=== PATIENT | female | born 1970 | race Caucasian/White ===

== ENCOUNTER 2021-06-10 20:20 | Emergency (ER) | payer MEDICARE, BC ==
[2021-06-10] MEDS ORDERED: Sodium Chloride 0.9% 10 ML Syringe FLUSH PRN (20:29)
[2021-06-10] MEDS ORDERED: Calcium Gluconate 1 GM in Sodium Chloride 0.9% 100 ML IV ONE ×3 (20:40→23:00)
--- NOTE | 2021-06-10 20:52 | EDM.PDOC ---
ED HPI GENERAL MEDICAL PROBLEM - General Chief Complaint: General Stated Complaint: hypocalcemia symptoms Time Seen by Provider: 06/10/21 20:35 Source of Information: Reports: Patient, Old Records History Limitations: Reports: No Limitations - History of Present Illness INITIAL COMMENTS - FREE TEXT/NARRATIVE: Patient present with facial numbness, hand and cheek spasms with concern for hypocalcemia. Patient is status post thyroidectomy and removal of two parathyroid glands. She has suffered for years with hypocalcemia, sees endocrine in [place] and has been having symptoms for a few days. They are progressively getting worse and she is concerned that she will not be able to make it through the weekend without treatment. Last treatment of IV calcium gluconate was in February of this year. She received iv potassium and 4 grams of calcium gluconate and was able to go home. She is taking oral supplementation of calcium and struggles to have a calcium level of greater than 7.9. Has not had to receive magnesium. Last TSh check was in February and had been slightly elevated due to a change in her Synthroid. She is no longer getting IV parathyroid infusions due to a recall of the medication. She has had multiple central lines, picc lines and ports for frequent infusions, but they have all become infected and does not have access at this time. She has been referred to [facility] for endocrine consultation July 04. Onset: Gradual Duration: Day(s):, Getting Worse Location: Reports: Face, Upper Extremity, Left, Upper Extremity, Right, Lower Extremity, Left, Lower Extremity, Right Quality: Reports: Other (cramping) Severity: Moderate Improves with: Reports: None Worsens with: Reports: Movement Associated Symptoms: Reports: No Other Symptoms - Related Data Allergies Allergy/AdvReac Type Severity Reaction Status Date / Time ampicillin Allergy Rash Verified 06/10/21 20:21 hydrocodone Allergy Airway Verified 06/10/21 20:21 Tightness, itching Home Meds: Home Meds Calcitriol 2 cap PO TID 06/23/17 [History] Calcium Carbonate [Tums] 1,500 mg PO QID 06/23/17 [History] Ergocalciferol (Vitamin D2) [Vitamin D2] 50,000 units PO MOWEFR@0800 06/23/17 [History] Ibuprofen 600 mg PO Q6HR PRN 06/23/17 [History] Meclizine [Antivert] 25 mg PO Q4HR PRN 06/23/17 [History] Naproxen Sodium [Aleve] 440 mg PO BID PRN 06/23/17 [History] Cholecalciferol (Vitamin D3) [Vitamin D3] 5,000 unit PO DAILY 06/10/21 [History] Levothyroxine Sodium [Synthroid] 175 mcg PO ACBREAKFAST 06/10/21 [History] Potassium Chloride [Klor-Con M20] 40 meq PO DAILY 06/10/21 [History] Past Medical History HEENT History: Reports: None Cardiovascular History: Reports: None Respiratory History: Reports: None Gastrointestinal History: Reports: None Genitourinary History: Reports: None INPATIENT PHARMACIST History: Reports: None Musculoskeletal History: Reports: None Neurological History: Reports: None Psychiatric History: Reports: Anxiety Endocrine/Metabolic History: Reports: Hypoparathyroidism (hypocalcemia), Hypothyroidism, Vitamin D Deficiency Other Endocrine/Metabolic History: does own IV infusions of calcium glucanate, potassium and magneisum Hematologic History: Reports: B12 Deficiency Dermatologic History: Reports: None Social & Family History - Tobacco Use Tobacco Use Status *Q: Never Tobacco User - Recreational Drug Use Recreational Drug Use: No Drug Use in Last 12 Months: No - Living Situation & Occupation Living situation: Reports: ED ROS GENERAL - Review of Systems Review Of Systems: See Below Constitutional: Reports: Weakness, Fatigue HEENT: Reports: Other (facial numbness and spasms of the cheeks). Denies: Hearing Loss Respiratory: Reports: No Symptoms. Denies: Shortness of Breath, Wheezing, Cough Cardiovascular: Reports: No Symptoms. Denies: Chest Pain, Blood Pressure Problem, Dyspnea on Exertion, Edema, Lightheadedness Endocrine: Reports: No Symptoms GI/Abdominal: Reports: No Symptoms. Denies: Abdominal Pain, Anorexia, Diarrhea, Flatus, Nausea, Vomiting : Reports: No Symptoms. Denies: Discharge, Dysuria, Frequency Musculoskeletal: Reports: Other (muscle cramps, spasms ) Skin: Reports: No Symptoms Neurological: Reports: Numbness (facial for days, wosening) Psychiatric: Reports: No Symptoms Hematologic/Lymphatic: Reports: No Symptoms Immunologic: Reports: No Symptoms ED EXAM, GENERAL - Physical Exam Exam: See Below Exam Limited By: No Limitations General Appearance: Alert, WD/WN, No Apparent Distress Eye Exam: Bilateral Eye: EOMI, Normal Inspection, PERRL Throat/Mouth: Normal Inspection, Normal Lips, Normal Teeth, Normal Gums (chvostek sign positive) Head: Atraumatic Neck: Normal Inspection, Supple, Non-Tender Respiratory/Chest: No Respiratory Distress, Lungs Clear, Normal Breath Sounds, No Accessory Muscle Use, Chest Non-Tender Cardiovascular: Normal Peripheral Pulses, Regular Rate, Rhythm, No Edema Extremities: Normal Inspection, Pedal Edema (1+ minimal in the mid jacobo area, mild in the hands bilaterally. ), Other (trousseau' s sign noted with blood pressure taken) Neurological: Alert, Oriented, CN II-XII Intact, Normal Cognition, Normal Gait, No Motor/Sensory Deficits Psychiatric: Normal Affect, Normal Mood #1 Interpretation EKG Date: 06/10/21 Time: 20:44 Rhythm: NSR Rate (Beats/Min): 80 Baker: Normal P-Wave: Present QRS: Normal ST-T: Normal QT: Normal Comparison: No Change (reviewed EKG from 02/2021) Course - Vital Signs Last Recorded V/S: Last Vital Signs Temp 36.3 C 06/10/21 20:20 Pulse 91 06/10/21 20:20 Resp 17 06/10/21 20:20 BP 131/82 06/10/21 20:20 Pulse Ox 100 06/10/21 20:20 - Orders/Labs/Meds Orders: Active Orders 24 hr Category Date Time Status EKG Documentation Completion [RC] ASDIRECTED Care 06/10/21 20:30 Active Peripheral IV Care [RC] . DIRECTED Care 06/10/21 20:29 Active Calcium Gluconate 1 gm Med 06/10/21 22:00 Ordered Sodium Chloride 0.9% [Normal Saline] 100 ml IV ONETIME Calcium Gluconate 1 gm Med 06/10/21 23:00 Ordered Sodium Chloride 0.9% [Normal Saline] 100 ml IV ONETIME Magnesium Sulfate/Water [Magnesium Sulfate in Water 2 Med 06/10/21 21:38 Ordered GM/50 ML] 2 gm Premix Bag 1 bag IV ONETIME Potassium Chloride Riders [KCl in Water 10 MEQ/50 ML] Med 06/10/21 21:38 Ordered 10 meq Premix Bag 1 bag IV ONETIME Sodium Chloride 0.9% [Saline Flush] Med 06/10/21 20:29 Active 10 ml FLUSH ASDIRECTED PRN Peripheral IV Insertion Adult [OM.PC] Routine Oth 06/10/21 20:29 Ordered EKG 12 Lead [EK] Stat Ther 06/10/21 20:29 Ordered Medication Orders Calcium Gluconate 1 gm/ Sodium (Chloride) 110 mls @ 100 mls/hr IV ONETIME ONE Stop: 06/10/21 23:05 Magnesium Sulfate 2 gm/ Premix 50 mls @ 25 mls/hr IV ONETIME ONE Stop: 06/10/21 23:37 Potassium Chloride 10 meq/ (Premix) 50 mls @ 50 mls/hr IV ONETIME ONE Stop: 06/10/21 22:37 Calcium Gluconate 1 gm/ Sodium (Chloride) 110 mls @ 100 mls/hr IV ONETIME ONE Stop: 06/11/21 00:05 Sodium Chloride (Sodium Chloride 0.9% 10 Ml Syringe) 10 ml FLUSH ASDIRECTED PRN PRN Reason: Keep Vein Open Labs: Laboratory Tests 06/10/21 06/10/21 06/10/21 Range/Units 20:55 20:55 20:55 WBC 9.5 (4.0-10.2) K/uL RBC 4.26 (3.77-5.09) M/uL Hgb 14.0 (11.7-15.5) g/dL Hct 41.4 (34.0-46.0) % MCV 97.2 (84.0-98.0) fL MCH 32.9 (28.2-33.3) pg MCHC 33.8 (31.7-36.0) g/dL RDW 14.0 (11.2-14.1) % Plt Count 282 (150-350) K/uL Neut % (Auto) 60.7 (45.0-80.0) % Lymph % (Auto) 29.7 (10.0-50.0) % [place] % (Auto) 6.2 (2.0-14.0) % Eos % (Auto) 3.1 (0.0-5.0) % Baso % (Auto) 0.3 (0.0-2.0) % Neut # (Auto) 5.76 (1.40-7.00) K/uL Lymph # (Auto) 2.82 (0.50-3.50) K/uL [place] # (Auto) 0.59 (0.00-1.00) K/uL Eos # (Auto) 0.29 (0.00-0.50) K/uL Baso # (Auto) 0.03 (0.00-0.20) K/uL Sodium 145 (136-145) mmol/L Potassium 3.1 L (3.5-5.1) mmol/L Chloride 106 (98-107) mmol/L Carbon Dioxide 26.1 (21.0-32.0) mmol/L Anion Gap 16.0 H (7-15) meq/L BUN 16 (7-18) mg/dL Creatinine 0.79 (0.51-1.17) mg/dL Est Cr Clr Drug Dosing 78.21 mL/min Estimated GFR (MDRD) > 60 mL/min Glucose 116 H (70-99) mg/dL Calcium 6.9 L (8.5-10.1) mg/dL Magnesium 1.6 L (1.8-2.4) mg/dL Total Bilirubin 0.1 L (0.2-1.0) mg/dL AST 17 (15-37) U/L ALT 29 (12-78) U/L Alkaline Phosphatase 72 (46-116) IU/L Total Protein 6.6 (6.4-8.2) g/dL Albumin 3.3 L (3.4-5.0) g/dL TSH, Ultra Sensitive 0.474 (0.358-3.740) mIU/mL Meds: Medications Generic Name Dose Route Start Last Admin Trade Name Freq PRN Reason Stop Dose Admin Calcium Gluconate 1 gm/ Sodium 110 mls @ 100 mls/hr 06/10/21 22:00 Chloride IV 06/10/21 23:05 ONETIME ONE Magnesium Sulfate 2 gm/ Premix 50 mls @ 25 mls/hr 06/10/21 21:38 IV 06/10/21 23:37 ONETIME ONE Potassium Chloride 10 meq/ 50 mls @ 50 mls/hr 06/10/21 21:38 Premix IV 06/10/21 22:37 ONETIME ONE Calcium Gluconate 1 gm/ Sodium 110 mls @ 100 mls/hr 06/10/21 23:00 Chloride IV 06/11/21 00:05 ONETIME ONE Sodium Chloride 10 ml 06/10/21 20:29 Sodium Chloride 0.9% 10 Ml Syringe FLUSH ASDIRECTED PRN Keep Vein Open Discontinued Medications Generic Name Dose Route Start Last Admin Trade Name Juni PRN Reason Stop Dose Admin Calcium Gluconate 1 gm/ Sodium 110 mls @ 100 mls/hr 06/10/21 20:40 06/10/21 20:59 Chloride IV 06/10/21 21:45 100 mls/hr ONETIME ONE Administration Potassium Chloride 60 meq 06/10/21 21:42 Potassium Chloride 20 Meq Tab.Er PO 06/10/21 21:43 ONETIME ONE - Re-Assessments/Exams Free Text/Narrative Re-Assessment/Exam: 06/10/21 21:03 Patient with long standing history of hypocalcemia after thyroidectomy and 2 parathyroidectomy with symptoms of hypocalcemia. Will give 1 gram calcium gluconate initially while awaiting labs to include tsh, electrolytes and magnesium. No changes in EKG. Will infuse the gram over an hour. Has not been ill otherwise. normal eating and drinking and has been taking her supplemental calcium. perfers to not go to [place] if not needed, and would like to go home after treatment. 06/10/21 21:57 potassium is low, takes 40 meq daily, will give 10 meq IV and 60 meq po. Magnesium is low at 1.6, to help with the calcium absorption will give 2 grams iv over two hours . Calcium is 6.9, normal for her is 7.8-7.9. will give 3 grams over 3 hours. No ekg changes. Will advise to get local medical contact to set up communication with endocrine in [place] for possible infusions as needed instead of trip to [place] ER with long wait times and increased exposure to Covid. offered admission here if wanted, would like to try at home, not a new problem for her. Discussed checking her symptoms in the morning, if not improved, [place] ED visit or return for admission and regular infusions for a day or so. Patient voices understanding and agrees. Will call endocrine in [place] in three days ( Sunday) and get order for recheck of labs, as a script by myself would be complicated to follow up on values short of hand off to next ED provid er. Patient understands and would return as needed. Departure - Departure Time of Disposition: 23:55 Disposition: Home, Self-Care 01 Condition: Good Clinical Impression: Hypokalemia, Hypocalcemia, Hypomagnesemia - Discharge Information Instructions: Hypomagnesemia, Hypokalemia, Hypocalcemia, Adult, Potassium Content of Foods, Calcium Content in Foods Referrals: Yousif Carrillo MD [Primary Care Provider] - Forms: ED Department Discharge Additional Instructions: Your potassium was low today at 3.1. Take your your potassium supplement of 40 meq once daily and increase the potassium rich foods or take the tablet twice a day until your levels are rechecked. You were given 10 meq IV and 60 meq orally. Your magnesium was low today at 1.6. A Supplement of 400 mg a day may help or magnesium rich foods. You were given 2 grams IV to help with the absorption of the potassium and the calcium. Your calcium was low today at 6.9. You were given 3 grams IV over 3 hours. Continue your oral supplements and your appointment with [facility] Call your mri supervisor on Sunday for labs to recheck these levels. Establish a local provider to act as a liaison between [place] and [facility] for labs and IV infusions as needed to limit trips to [place] ER and increased exposure to Covid 19. If your symptoms are not improved tomorrow, return to the ED for possible admission for routine IV treatments of IV calcium or to [place]. Sepsis Event Note (ED) - Evaluation Sepsis Screening Result: No Definite Risk - Focused Exam Vital Signs: Vital Signs Temp Pulse Resp BP Pulse Ox 06/10/21 20:20 36.3 C 91 17 131/82 100 - My Orders Last 24 Hours: My Active Orders 06/10/21 20:29 Peripheral IV Care [RC] . DIRECTED Sodium Chloride 0.9% [Saline Flush] 10 ml FLUSH ASDIRECTED PRN Peripheral IV Insertion Adult [OM.PC] Routine EKG 12 Lead [EK] Stat 06/10/21 20:30 EKG Documentation Completion [RC] ASDIRECTED 06/10/21 21:38 Magnesium Sulfate/Water [Magnesium Sulfate in Water 2 GM/50 ML] 2 gm Premix Bag 1 bag IV ONETIME Potassium Chloride Riders [KCl in Water 10 MEQ/50 ML] 10 meq Premix Bag 1 bag IV ONETIME 06/10/21 22:00 Calcium Gluconate 1 gm Sodium Chloride 0.9% [Normal Saline] 100 ml IV ONETIME 06/10/21 23:00 Calcium Gluconate 1 gm Sodium Chloride 0.9% [Normal Saline] 100 ml IV ONETIME - Assessment/Plan Last 24 Hours: My Active Orders 06/10/21 20:29 Peripheral IV Care [RC] . DIRECTED Sodium Chloride 0.9% [Saline Flush] 10 ml FLUSH ASDIRECTED PRN Peripheral IV Insertion Adult [OM.PC] Routine EKG 12 Lead [EK] Stat 06/10/21 20:30 EKG Documentation Completion [RC] ASDIRECTED 06/10/21 21:38 Magnesium Sulfate/Water [Magnesium Sulfate in Water 2 GM/50 ML] 2 gm Premix Bag 1 bag IV ONETIME Potassium Chloride Riders [KCl in Water 10 MEQ/50 ML] 10 meq Premix Bag 1 bag IV ONETIME 06/10/21 22:00 Calcium Gluconate 1 gm Sodium Chloride 0.9% [Normal Saline] 100 ml IV ONETIME 06/10/21 23:00 Calcium Gluconate 1 gm Sodium Chloride 0.9% [Normal Saline] 100 ml IV ONETIME
[2021-06-10 21:21] LABS: CHLORIDE,CL 106 mmol/L (98-107); SODIUM,NA 145 mmol/L (136-145)
[2021-06-10] MEDS ORDERED: Magnesium Sulfate/Water 2 GM in Premix Bag 1 BAG IV ONE (21:38)
[2021-06-10] MEDS ORDERED: Potassium Chloride Riders 10 MEQ in Premix Bag 1 BAG IV ONE (21:38)
[2021-06-10] MEDS ORDERED: Potassium Chloride 20 MEQ Tab.ER PO ONE (21:42)
[2021-06-10] MEDS: Sodium Chloride 0.9% 100 ML IV SCH ×2 (22:05→22:10)
[2021-06-10 23:45] VITALS: BP 117/71; PULSE 73
== END 2021-06-11 00:35 | disposition home or self-care (01) ==
LOC: LL.ED 20:20
DX: E87.6 Hypokalemia (principal); E83.51 Hypocalcemia; E83.42 Hypomagnesemia; E03.9 Hypothyroidism, unspecified; Z88.0 Allergy status to penicillin; Z88.5 Allergy status to narcotic agent; Z79.899 Other long term (current) drug therapy
CPT/HCPCS: 36415; 80053; 83735; 84443; 85025; 93005; 93010; 96365; 96366; 96367; 96368; 96375; 99284; 99284-25; A9270-GY; J0610; J3475; J3480

== ENCOUNTER 2021-08-26 19:10 | Emergency (ER) | payer BC, MEDICARE ==
[2021-08-26] MEDS ORDERED: Magnesium Sulfate/Water 2 GM in Premix Bag 1 BAG IV ONE (19:21)
[2021-08-26] MEDS ORDERED: Sodium Chloride 0.9% 10 ML Syringe FLUSH PRN (19:21)
[2021-08-26] MEDS ORDERED: Calcium Gluconate 10% 1 GM/10 ML SDV IVPUSH ONE (19:21)
--- NOTE | 2021-08-26 19:47 | EDM.PDOC ---
ED HPI GENERAL MEDICAL PROBLEM - General Chief Complaint: General Stated Complaint: hypocalcemia w/ tetany Time Seen by Provider: 08/26/21 19:20 Source of Information: Reports: Patient History Limitations: Reports: No Limitations - History of Present Illness INITIAL COMMENTS - FREE TEXT/NARRATIVE: Patient presents to the Ed with increasing symptoms of low calcium. Patient has a complex history of thyroidectomy and two parathyroidectomy with sequalae of electrolyte imbalance. I am familiar with the patient and she recent did see her chief librarian extension department at [facility] and is awaiting approval for a clinical trial medication. Patient has been having symptoms for three weeks. Did wait for her PCP appointment on 08/19. labs were drawn. She was called with the results and was awaiting a call back for an infusion but has not heard anything. Patient has been having increasing muscle aches, fatigue and numbness. She was told to repeat labs from last week today even though she hadn't had any changes in meds or infusion so she did. Tonight she presented because she felt she could not wait until next week. Onset: Gradual Duration: Getting Worse Bilateral Leg Pain Score (Numeric/FACES): 4 - Related Data Allergies Allergy/AdvReac Type Severity Reaction Status Date / Time ampicillin Allergy Rash Verified 08/26/21 19:22 hydrocodone Allergy Airway Verified 08/26/21 19:22 Tightness, itching Home Meds: Home Meds Calcitriol 2 cap PO TID 06/23/17 [History] Calcium Carbonate [Tums] 1,500 mg PO QID 06/23/17 [History] Ergocalciferol (Vitamin D2) [Vitamin D2] 50,000 units PO MOWEFR@0800 06/23/17 [History] Ibuprofen 600 mg PO Q6HR PRN 06/23/17 [History] Meclizine [Antivert] 25 mg PO Q4HR PRN 06/23/17 [History] Naproxen Sodium [Aleve] 440 mg PO BID PRN 06/23/17 [History] Cholecalciferol (Vitamin D3) [Vitamin D3] 5,000 unit PO DAILY 06/10/21 [History] Levothyroxine Sodium [Synthroid] 175 mcg PO ACBREAKFAST 06/10/21 [History] Potassium Chloride [Klor-Con M20] 40 meq PO DAILY 06/10/21 [History] Magnesium Chloride [Mag Delay] 64 mg PO DAILY 08/26/21 [History] Past Medical History HEENT History: Reports: None Cardiovascular History: Reports: None Respiratory History: Reports: None Gastrointestinal History: Reports: None Genitourinary History: Reports: None HOME CARE NURSE History: Reports: Musculoskeletal History: Reports: None Neurological History: Reports: None Psychiatric History: Reports: Anxiety Endocrine/Metabolic History: Reports: Hypoparathyroidism, Hypothyroidism, Vitamin D Deficiency Other Endocrine/Metabolic History: does own IV infusions of calcium glucanate, potassium and magneisum Hematologic History: Reports: B12 Deficiency Oncologic (Cancer) History: Reports: Leukemia Dermatologic History: Reports: None - Infectious Disease History Infectious Disease History: Reports: Other (See Below) Other Infectious Disease History: history recurrent CLABSI - Past Surgical History Female Surgical History: Reports: Hysterectomy Musculoskeletal Surgical History: Reports: Other (See Below) Other Musculoskeletal Surgeries/Procedures:: cervical spine fusion Social & Family History - Tobacco Use Tobacco Use Status *Q: Unknown Ever Used Tobacco - Recreational Drug Use Recreational Drug Use: No Drug Use in Last 12 Months: No - Living Situation & Occupation Living situation: Reports: ED ROS GENERAL - Review of Systems Review Of Systems: See Below Constitutional: Reports: Malaise, Weakness, Fatigue HEENT: Reports: No Symptoms Respiratory: Reports: No Symptoms Cardiovascular: Reports: No Symptoms Endocrine: Reports: No Symptoms GI/Abdominal: Reports: No Symptoms : Reports: No Symptoms Musculoskeletal: Reports: Other (muscle spasms and achiness) Neurological: Reports: Numbness Psychiatric: Reports: No Symptoms Hematologic/Lymphatic: Reports: No Symptoms Immunologic: Reports: No Symptoms ED EXAM, GENERAL - Physical Exam Exam: See Below Exam Limited By: No Limitations General Appearance: Alert, WD/WN, No Apparent Distress Eye Exam: Bilateral Eye: EOMI, Normal Inspection Ears: Normal External Exam Nose: Normal Inspection Throat/Mouth: Normal Inspection, Normal Lips, Normal Voice Head: Atraumatic Neck: Normal Inspection, Supple, Non-Tender Respiratory/Chest: No Respiratory Distress, Lungs Clear, Normal Breath Sounds, No Accessory Muscle Use Cardiovascular: Normal Peripheral Pulses, Regular Rate, Rhythm, No Murmur GI/Abdominal: Normal Bowel Sounds Extremities: Normal Inspection, No Pedal Edema Neurological: Alert, Oriented, CN II-XII Intact, Normal Cognition, No Motor/Sensory Deficits Psychiatric: Normal Affect Course - Vital Signs Last Recorded V/S: Last Vital Signs Temp 36.6 C 08/27/21 00:11 Pulse 73 08/27/21 00:11 Resp 14 08/27/21 00:11 BP 102/50 L 08/27/21 00:11 Pulse Ox 97 08/27/21 00:11 - Orders/Labs/Meds Orders: Active Orders 24 hr Category Date Time Status Peripheral IV Insertion Adult [OM.PC] Routine Oth 08/26/21 19:21 Ordered EKG 12 Lead [EK] Stat Ther 08/26/21 19:21 Ordered Meds: Medications Discontinued Medications Generic Name Dose Route Start Last Admin Trade Name Freq PRN Reason Stop Dose Admin Calcium Gluconate 3 gm 08/26/21 19:21 08/26/21 23:29 Calcium Gluconate 10% 1 Gm/10 Ml Sdv IVPUSH 08/26/21 19:22 3 gm ONETIME ONE Administration Magnesium Sulfate 2 gm/ Premix 50 mls @ 25 mls/hr 08/26/21 19:21 08/26/21 20:08 IV 08/26/21 21:20 25 mls/hr ONETIME ONE Administration Potassium Chloride 10 meq/ 50 mls @ 50 mls/hr 08/26/21 19:30 08/26/21 22:58 Premix IV 08/27/21 20:29 50 mls/hr ONETIME RON Administration Sodium Chloride 10 ml 08/26/21 19:21 Sodium Chloride 0.9% 10 Ml Syringe FLUSH ASDIRECTED PRN Keep Vein Open - Re-Assessments/Exams Free Text/Narrative Re-Assessment/Exam: 08/26/21 19:48 Patient needs IV infusions of calcium gluconate 2 grams, potassium chloride 20 meq and magnesium 2 grams. Continue follow up with [facility] for experimental approval of medication. See PCP next week to check lab levels. return for more symptoms without delay. Discussed that waiting while symptomatic can cause conduction problems with her heart and is not advised. Attempted to get EKG, machine is malfunctioning. Bedside monitoring does not reveal arrhythmia, wide qrs or concerning problems. 08/26/21 20:13 Discussed with patient follow up in 3 days for electrolyte recheck. It has been 2 1/2 months since she had her last infusion and at least 3 weeks since she became symptomatic. It may be beneficial to track her dropping of electrolyte level every couple of weeks so that she can get an infusion prior to getting so low in regards to her overall health. Also ask her PCP to set up a standing order for the infusions so that when labs are abnormal, she can set up an outpatient infusion with nursing and avoid an ER visit. She will ask her provider this. Departure - Departure Time of Disposition: 23:55 Disposition: Home, Self-Care 01 Condition: Good Clinical Impression: Hypocalcemia, Hypomagnesemia, Hypokalemia - Discharge Information Referrals: Saba Jensen MD [Primary Care Provider] - Forms: ED Department Discharge Additional Instructions: set up an appointment with your pcp on August 29 for recheck of your electrolytes. Discuss with her the possibility of tracking the drop of them over time so you have an idea of how to correlate your symptoms with your levels and need for infusion. Also discuss with your physician the possibility of setting up a standing order for your infusions so that when needed you can come to outpatient at a time that is convenient for you and nursing staff and bypass an ER visit and charge. Sepsis Event Note (ED) - Evaluation Sepsis Screening Result: No Definite Risk - Focused Exam Vital Signs: Vital Signs Temp Pulse Resp BP Pulse Ox 08/27/21 00:11 36.6 C 73 14 102/50 L 97 - My Orders Last 24 Hours: My Active Orders 08/26/21 19:21 Peripheral IV Insertion Adult [OM.PC] Routine EKG 12 Lead [EK] Stat - Assessment/Plan Last 24 Hours: My Active Orders 08/26/21 19:21 Peripheral IV Insertion Adult [OM.PC] Routine EKG 12 Lead [EK] Stat
[2021-08-26] MEDS: Potassium Chloride Riders 10 MEQ in Premix Bag 1 BAG IV SCH ×2 (21:36→22:58)
[2021-08-27 00:12] VITALS: BP 102/50; PULSE 73
== END 2021-08-27 00:20 | disposition home or self-care (01) ==
LOC: LL.ED 19:10
DX: E83.51 Hypocalcemia (principal); E83.42 Hypomagnesemia; E87.6 Hypokalemia; E03.9 Hypothyroidism, unspecified; Z88.1 Allergy status to other antibiotic agents; Z88.5 Allergy status to narcotic agent; Z79.899 Other long term (current) drug therapy
CPT/HCPCS: 96365; 96366; 96367; 99284; J0610; J3475; J3480

== ENCOUNTER 2023-07-30 20:18 | Emergency (ER) | payer BC ==
[2023-07-30 20:22] VITALS: BP 133/81; PULSE 109
[2023-07-30] MEDS ORDERED: Acetaminophen 325 MG Tab PO ONE (20:30)
[2023-07-30 21:12] LABS: CORONAVIRUS COVID-19 NAA NEGATIVE (NEGATIVE); INFLUENZA A NAA NEGATIVE (NEGATIVE); INFLUENZA B NAA NEGATIVE (NEGATIVE); RESPIRATORY SYNCYTIAL VIR NAA NEGATIVE (NEGATIVE)
[2023-07-30 22:28] LABS: BASOPHILS ABSOLUTE AUTO 0.03 K/uL (0.00-0.20); BASOPHILS PERCENT AUTO 0.1 % (0.0-2.0); EOSINOPHILS ABSOLUTE AUTO 0.05 K/uL (0.00-0.50); EOSINOPHILS PERCENT AUTO 0.2 % (0.0-5.0); HEMOGLOBIN 15.1 g/dL (11.7-15.5); LYMPHOCYTES ABSOLUTE AUTO 1.68 K/uL (0.50-3.50); LYMPHOCYTES PERCENT AUTO 8.3 % (10.0-50.0); MEAN CORPUSCULAR HEMOGLOBIN 32.6 pg (28.2-33.3); MEAN CORPUSCULAR HGB CONC 34.3 g/dL (31.7-36.0); MONOCYTES ABSOLUTE AUTO 1.14 K/uL (0.00-1.00); MONOCYTES PERCENT AUTO 5.6 % (2.0-14.0); NEUTROPHILS ABSOLUTE AUTO 17.35 K/uL (1.40-7.00); NEUTROPHILS PERCENT AUTO 85.8 % (45.0-80.0); PLATELET COUNT,PLT 267 K/uL (150-350); RED BLOOD CELL COUNT 4.63 M/uL (3.77-5.09); RED CELL DISTRIBUTION WIDTH 13.6 % (11.2-14.1); WHITE BLOOD CELL COUNT,WBC 20.3 K/uL (4.0-10.2)
[2023-07-30 22:46] LABS: ALANINE AMINOTRANSFERASE,ALT 52 U/L (12-78); ALBUMIN 3.6 g/dL (3.4-5.0); ALKALINE PHOSPHATASE 121 IU/L (46-116); ANION GAP 18.9 meq/L (7-15); ASPARTATE AMNIOTRANSFERASE,AST 24 U/L (15-37); BILIRUBIN TOTAL 0.6 mg/dL (0.2-1.0); BLOOD UREA NITROGEN,BUN 14 mg/dL (7-18); CALCIUM 7.8 mg/dL (8.5-10.1); CARBON DIOXIDE,CO2 22.2 mmol/L (21.0-32.0); CHLORIDE,CL 101 mmol/L (98-107); ESTIMATED GFR 89 mL/min (>=60); GLUCOSE RANDOM 106 mg/dL (70-99); MAGNESIUM 1.5 mg/dL (1.8-2.4); POTASSIUM,K 3.1 mmol/L (3.5-5.1); PROTEIN TOTAL,TP 7.3 g/dL (6.4-8.2); SODIUM,NA 139 mmol/L (136-145)
[2023-07-30] MEDS ORDERED: Potassium Chloride 20 MEQ Tab.ER PO ONE (23:05)
[2023-07-30] MEDS ORDERED: Benzonatate 100 MG Cap PO ONE (23:06)
[2023-07-30] MEDS ORDERED: predniSONE 20 MG Tab PO ONE (23:13)
== END 2023-07-30 23:20 | disposition home or self-care (01) ==
LOC: LL.ED 20:18
DX: B34.9 Viral infection, unspecified (principal); E87.6 Hypokalemia; E83.42 Hypomagnesemia; E83.51 Hypocalcemia; Z20.822 Contact with and (suspected) exposure to COVID-19; E03.9 Hypothyroidism, unspecified; Z90.710 Acquired absence of both cervix and uterus; Z79.899 Other long term (current) drug therapy; Z88.5 Allergy status to narcotic agent; Z88.0 Allergy status to penicillin
CPT/HCPCS: 0241U; 36415; 71046; 80053; 83605; 83735; 85025; 99283; 99284; A9270-GY; J7512

== ENCOUNTER 2024-10-08 16:55 | Emergency (ER) | payer BC, OTHER ==
[2024-10-08 17:26] LABS: BASOPHILS ABSOLUTE AUTO 0.03 K/uL (0.00-0.20); BASOPHILS PERCENT AUTO 0.5 % (0.0-2.0); EOSINOPHILS ABSOLUTE AUTO 0.07 K/uL (0.00-0.50); EOSINOPHILS PERCENT AUTO 1.2 % (0.0-5.0); HEMATOCRIT 43.6 % (34.0-46.0); HEMOGLOBIN 14.6 g/dL (11.7-15.5); LYMPHOCYTES ABSOLUTE AUTO 4.21 K/uL (0.50-3.50); LYMPHOCYTES PERCENT AUTO 69.5 % (10.0-50.0); MEAN CORPUSCULAR HEMOGLOBIN 31.7 pg (28.2-33.3); MEAN CORPUSCULAR HGB CONC 33.5 g/dL (31.7-36.0); MEAN CORPUSCULAR VOLUME 94.6 fL (84.0-98.0); MONOCYTES ABSOLUTE AUTO 0.31 K/uL (0.00-1.00); MONOCYTES PERCENT AUTO 5.1 % (2.0-14.0); NEUTROPHILS ABSOLUTE AUTO 1.44 K/uL (1.40-7.00); NEUTROPHILS PERCENT AUTO 23.7 % (45.0-80.0); PLATELET COUNT,PLT 249 K/uL (150-350); RED BLOOD CELL COUNT 4.61 M/uL (3.77-5.09); RED CELL DISTRIBUTION WIDTH 13.6 % (11.2-14.1); WHITE BLOOD CELL COUNT,WBC 6.1 K/uL (4.0-10.2)
[2024-10-08] MEDS: Calcium Gluc in NaCl, ISO-OSM 1,000 MG in Premix Bag 1 BAG IV ONE ×3 (17:28→19:55)
[2024-10-08 17:40] LABS: PROTHROMBIN TIME 9.9 SEC (9.0-11.1)
[2024-10-08 17:43] LABS: ALBUMIN 3.2 g/dL (3.4-5.0); ANION GAP 6.9 meq/L (7-15); BILIRUBIN TOTAL 0.2 mg/dL (0.2-1.0); CALCIUM 6.8 mg/dL (8.5-10.1); CARBON DIOXIDE,CO2 31.1 mmol/L (21.0-32.0); CREATININE 0.95 mg/dL (0.51-1.17); EST CRCL DRUG DOSING (CG) 61.63 mL/min; MAGNESIUM 1.6 mg/dL (1.8-2.4); POTASSIUM,K 4.2 mmol/L (3.5-5.1)
[2024-10-08] MEDS: Sodium Chloride 0.9% 10 ML Syringe FLUSH PRN (21:12)
[2024-10-08 21:16] VITALS: BP 114/42; PULSE 74
== END 2024-10-08 21:35 | disposition home or self-care (01) ==
LOC: LL.ED 16:55
DX: E20.9 Hypoparathyroidism, unspecified (principal); I45.81 Long QT syndrome; Z90.710 Acquired absence of both cervix and uterus; Z79.899 Other long term (current) drug therapy; Z79.890 Hormone replacement therapy; Z88.0 Allergy status to penicillin; Z88.5 Allergy status to narcotic agent
CPT/HCPCS: 36415; 80053; 82310; 83735; 85025; 85610; 93005; 96365; 96366; 99284-25; J0612